=== PATIENT | female | born 1990 | race Caucasian/White ===

== ENCOUNTER 2021-05-12 16:04 | Outpatient (CLI) | payer BC ==
[2021-05-13 01:42] LABS: SARS-CoV-2 PCR by NAA Not Detected (NotDetected)
== END 2021-05-12 16:05 | disposition home or self-care (01) ==
LOC: CSHLAB 16:04
PROVIDERS: ATTEND Obstetrics & Gynecology
DX: Z01.812 Encounter for preprocedural laboratory examination (principal); Z20.822 Contact with and (suspected) exposure to COVID-19
CPT/HCPCS: U0003; U0005

== ENCOUNTER 2021-05-16 05:30 | Inpatient (IN) | payer BC ==
[2021-05-16] MEDS ORDERED: HYDROcodone/Acetaminophen 5/325 mg Tablet PO PRN ×4 (05:56→23:05)
[2021-05-16] MEDS ORDERED: Butorphanol Tartrate 1 MG/ML VIAL SLOW IVP PRN (05:56)
[2021-05-16] MEDS ORDERED: Lidocaine 1% (PF) 30 ML VIAL SC PRN (05:56)
[2021-05-16] MEDS ORDERED: Ondansetron PF 4 MG/2 ML Vial IVP PRN ×3 (05:56→23:05)
[2021-05-16] MEDS ORDERED: hydrALAZINE 20 MG/ML VIAL SLOW IVP PRN ×2 (05:56→23:05)
[2021-05-16] MEDS ORDERED: NS w/ Oxytocin 30 units 500 ML IVPB SCH (05:56)
[2021-05-16] MEDS ORDERED: Ibuprofen 800 MG TAB PO PRN (05:56)
[2021-05-16] MEDS ORDERED: NS w/ Oxytocin 30 units 500 ML IV SCH ×3 (05:56→23:05)
[2021-05-16 06:16] VITALS: BMI 37.0
[2021-05-16] MEDS: Lactated Ringer's 1,000 ML IV SCH ×2 (07:06→19:09)
[2021-05-16 07:21] LABS: Syphilis Antibody Nonreactive (Nonreactive); Syphilis Antibody Index 0.09 S/CO (<1.00 Non-Reactive)
[2021-05-16 07:23] LABS: HIV (1/2) Antibody/Antigen Non-Reactive (NonReactive); HIV 1/2 INDEX 0.07 S/CO (<1.00); Hep B Surf Ag Non-Reactive S/CO (NonReactive)
[2021-05-16 07:38] LABS: Hemoglobin 12.4 g/dL (12.0-15.5); Mean Corpuscular HGB CONC 32.2 g/dL (32.0-36.0); Mean Corpuscular Hemoglobin 26.1 pg (27.0-33.0); Mean Corpuscular Volume 81.1 fl (81.6-98.3); Mean Platelet Volume 11.5 fl (7.4-10.4); Platelet Count 181 10x3/uL (150-450); Red Blood Cell (RBC) Count 4.75 10x6/uL (3.90-5.03); White Blood Cell (WBC) Count 7.9 10x3/uL (3.5-10.5)
[2021-05-16 11:39] LABS: HBSAg Index 0.21 S/CO (0-0.99)
[2021-05-16] MEDS ORDERED: Fentanyl 2 mcg/Bup 0.1% Cadd 100 ML ONE (13:30)
[2021-05-16] MEDS ORDERED: Promethazine HCl 25 MG/ML VIAL IM PRN (14:02)
[2021-05-16] MEDS ORDERED: ePHEDrine Sulfate 50 MG/10 ML VIAL SLOW IVP PRN (14:02)
[2021-05-16] MEDS ORDERED: Naloxone HCl 0.4 mg/ml Vial IVP PRN ×2 (14:02)
[2021-05-16] MEDS ORDERED: Hydrocerin (Eucerin) Cream 120 gm Jar TOP PRN (14:02)
[2021-05-16] MEDS ORDERED: Acetaminophen 325 MG TAB PO PRN (14:02)
[2021-05-16] MEDS ORDERED: Lactated Ringer's 500 ML IV PRN (14:02)
[2021-05-16] MEDS ORDERED: diphenhydrAMINE 50 MG/ML VIAL IVP PRN (14:02)
[2021-05-16] MEDS ORDERED: Communication Order-Pharmacy FS SCH (14:15)
[2021-05-16] MEDS ORDERED: Fentanyl 2 mcg/Bupivacaine 0.1% Cassette 100 ML EPIDURAL SCH (14:15)
[2021-05-16] MEDS ORDERED: Boostrix 0.5 ML (Tdap) VIAL IM ONE (23:05)
[2021-05-16] MEDS ORDERED: diphenhydrAMINE 25 MG CAP PO PRN (23:05)
[2021-05-16] MEDS ORDERED: Benzocaine-Menthol 82.5 ML CAN TOP PRN (23:05)
[2021-05-16] MEDS ORDERED: Bisacodyl 10 MG SUPP PR PRN (23:05)
[2021-05-16] MEDS ORDERED: Lanolin Ointment 7 GM TUBE TOP PRN (23:05)
[2021-05-16] MEDS ORDERED: Milk Of Magnesia 30 ML UDCUP PO PRN (23:05)
[2021-05-16] MEDS ORDERED: Preparation H Ointment 28 GM TUBE PR PRN (23:05)
[2021-05-17] MEDS: Docusate Calcium (SURFAK) 240 MG CAP PO SCH ×3 (01:08→21:39)
[2021-05-17] MEDS: Ibuprofen 800 MG TAB PO SCH ×4 (01:08→21:39)
[2021-05-17] MEDS: Lactated Ringer's 1,000 ML IV SCH (02:44)
[2021-05-17] MEDS: Ferrous Sulfate 325 MG TAB PO SCH ×2 (07:48→18:29)
[2021-05-17] MEDS ORDERED: Prenatal Vitamin 1 TAB PO SCH (09:00)
[2021-05-18 00:29] VITALS: BP 145/73; TEMP 98.9
== END 2021-05-17 22:30 | disposition home or self-care (01) | DRG 807 ==
LOC: CSHLD 05:52 → CSHPP 23:02
PROVIDERS: ADMIT Obstetrics & Gynecology; ATTEND Obstetrics & Gynecology
PROC: 10E0XZZ Delivery of Products of Conception, External Approach (ICD-10-PCS; principal; 2021-05-16)
PROC: 10907ZC Drainage of Amniotic Fluid, Therapeutic from Products of Conception, Via Natural or Artificial Opening (ICD-10-PCS; 2021-05-16)
PROC: 10H07YZ Insertion of Other Device into Products of Conception, Via Natural or Artificial Opening (ICD-10-PCS; 2021-05-16)
PROC: 3E0234Z Introduction of Serum, Toxoid and Vaccine into Muscle, Percutaneous Approach (ICD-10-PCS; 2021-05-17)
DX: O69.81X0 Labor and delivery complicated by cord around neck, without compression, not applicable or unspecified (principal); Z37.0 Single live birth; Z3A.39 39 weeks gestation of pregnancy; O26.893 Other specified pregnancy related conditions, third trimester; Z20.822 Contact with and (suspected) exposure to COVID-19; Z67.41 Type O blood, Rh negative
CPT/HCPCS: 36415; 85027; 85461; 86780; 86850; 86870; 86900; 86901; 87340; 87389; 90384; 96372; J2405; J2590; J7120

== ENCOUNTER 2021-06-01 23:06 | Inpatient (IN) | payer BC ==
[2021-06-01] MEDS ORDERED: Ondansetron PF 4 MG/2 ML Vial ONE (23:34)
[2021-06-01] MEDS ORDERED: Ketorolac Tromethamine 30 MG/ML VIAL ONE (23:34)
[2021-06-01 23:57] LABS: #Eosinphils 0.1 10x3/uL (0.0-0.5); #Monocytes 0.6 10x3/uL (0.0-1.1); #Neutrophils 12.7 10x3/uL (1.5-8.4); %Basophils 0.1 % (0.0-2.0); %Eosinophils 0.8 % (0.0-6.0); %Lymphocytes 7.2 % (18.0-47.0); %Monocytes 3.8 % (0.0-10.0); %Neutrophils 87.8 % (40.0-75.0); Mean Corpuscular HGB CONC 31.9 g/dL (32.0-36.0); Mean Corpuscular Hemoglobin 26.5 pg (27.0-33.0); Mean Corpuscular Volume 82.9 fl (81.6-98.3); Mean Platelet Volume 10.2 fl (7.4-10.4); Platelet Count 258 10x3/uL (150-450); Red Blood Cell (RBC) Count 6.04 10x6/uL (3.90-5.03); White Blood Cell (WBC) Count 14.4 10x3/uL (3.5-10.5)
[2021-06-02 00:12] LABS: ALT (SGPT) 359 U/L (8-55); AST (SGOT) 428 U/L (5-34); Albumin 4.3 g/dL (3.5-5.0); Alkaline Phosphatase 233 U/L (40-110); Anion Gap 16 mmol/L (10-20); BUN (Urea Nitrogen) 11 mg/dL (7.0-18.7); Bilirubin, Total 4.4 mg/dL (0.2-1.2); Calc. Creatinine Clearance 0 mL/min (70-130); Calcium 9.4 mg/dL (7.8-10.44); Carbon Dioxide 21 mmol/L (22-29); Chloride 107 mmol/L (98-107); Glucose 137 mg/dL (70-105); Potassium 3.8 mmol/L (3.5-5.1); Protein, Total 8.3 g/dL (6.0-8.3); Sodium 140 mmol/L (136-145)
[2021-06-02 00:54] LABS: Lipase Greater than 16000 U/L (8-78)
[2021-06-02] MEDS ORDERED: Aztreonam 1 GM in Sodium Chloride 0.9% 100 ML IVPB SCH (01:00)
[2021-06-02 01:35] LABS: SARS-CoV-2 NAA Rapid Test Not Detected (NotDetected)
[2021-06-02] MEDS ORDERED: Morphine 4 MG/ML VIAL ONE ×3 (02:56→10:27)
[2021-06-02 07:41] LABS: #Monocytes 0.4 10x3/uL (0.0-1.1); #Neutrophils 5.9 10x3/uL (1.5-8.4); %Basophils 0.1 % (0.0-2.0); %Eosinophils 0.3 % (0.0-6.0); %Lymphocytes 18.5 % (18.0-47.0); %Monocytes 4.7 % (0.0-10.0); Hemoglobin 14.1 g/dL (12.0-15.5); Mean Corpuscular HGB CONC 31.1 g/dL (32.0-36.0); Mean Corpuscular Hemoglobin 26.7 pg (27.0-33.0); Mean Corpuscular Volume 85.8 fl (81.6-98.3); Mean Platelet Volume 10.4 fl (7.4-10.4); Platelet Count 229 10x3/uL (150-450); RBC Distribution Width 21.7 % (11.5-14.5); Red Blood Cell (RBC) Count 5.29 10x6/uL (3.90-5.03); White Blood Cell (WBC) Count 7.8 10x3/uL (3.5-10.5)
[2021-06-02 07:57] LABS: ALT (SGPT) 273 U/L (8-55); AST (SGOT) 241 U/L (5-34); Albumin 3.6 g/dL (3.5-5.0); Alkaline Phosphatase 198 U/L (40-110); Anion Gap 13 mmol/L (10-20); BUN (Urea Nitrogen) 11 mg/dL (7.0-18.7); Bilirubin, Total 1.2 mg/dL (0.2-1.2); Calc. Creatinine Clearance 0 mL/min (70-130); Calcium 8.2 mg/dL (7.8-10.44); Carbon Dioxide 20 mmol/L (22-29); Chloride 113 mmol/L (98-107); Globulin 3.2 g/dL (2.4-3.5); Glucose 97 mg/dL (70-105); Protein, Total 6.8 g/dL (6.0-8.3); Sodium 142 mmol/L (136-145)
[2021-06-02 08:20] LABS: Lipase 4055 U/L (8-78)
[2021-06-02] MEDS ORDERED: Dextrose 5% in Water 1,000 ML IV PRN (08:32)
[2021-06-02] MEDS ORDERED: Ondansetron PF 4 MG/2 ML Vial IVP PRN (08:32)
[2021-06-02] MEDS ORDERED: Promethazine HCl 25 MG/ML VIAL IM PRN (08:32)
[2021-06-02] MEDS ORDERED: hydrALAZINE 20 MG/ML VIAL SLOW IVP PRN (08:32)
[2021-06-02] MEDS ORDERED: Dextrose 50% Abboject 50 ML SYRINGE SLOW IVP PRN (08:32)
[2021-06-02] MEDS ORDERED: Calcium Carbonate 500 MG ChewTAB PO PRN (08:32)
[2021-06-02] MEDS ORDERED: Mag-Al 1200 mg/1200 mg/30 ML UDCUP PO PRN (08:32)
[2021-06-02] MEDS ORDERED: Famotidine 20 MG TAB PO SCH (09:00)
[2021-06-02] MEDS ORDERED: Morphine 4 MG/ML VIAL SLOW IVP PRN (10:09)
[2021-06-02] MEDS ORDERED: Famotidine/PF 20 mg/2ml Vial ONE ×2 (10:15→14:14)
[2021-06-02] MEDS: Morphine 4 MG/ML VIAL SLOW IVP PRN (10:26)
[2021-06-02] MEDS: Famotidine/PF 20 mg/2ml Vial SLOW IVP SCH ×2 (10:27→20:33)
[2021-06-02] MEDS: Lactated Ringer's 1,000 ML IV SCH ×3 (10:27→20:33)
[2021-06-02] MEDS ORDERED: Ondansetron PF 4 MG/2 ML Vial ONE ×2 (11:42→13:37)
[2021-06-02] MEDS ORDERED: HYDROmorphone 0.5 MG/0.5 ML SYRINGE ONE (13:33)
[2021-06-02] MEDS ORDERED: Dexamethasone 20 MG/5 ML VIAL ONE (13:37)
[2021-06-02] MEDS ORDERED: Lidocaine 1% PF 5 ML VIAL ONE (13:37)
[2021-06-02] MEDS ORDERED: PROPOFOL 40 ML ONE (13:37)
[2021-06-02] MEDS ORDERED: Fentanyl 100 MCG/2 ML VIAL ONE ×2 (13:37→15:48)
[2021-06-02] MEDS ORDERED: Rocuronium Bromide 10 MG/ML (10ML VIAL) ONE (13:37)
[2021-06-02] MEDS ORDERED: Succinylcholine 200 MG/10 ml SYRINGE FS ONE (14:12)
[2021-06-02] MEDS ORDERED: Midazolam HCl 2 mg/2 ml Vial ONE (14:13)
[2021-06-02] MEDS ORDERED: Scopolamine 1.5 mg/72 hour Patch ONE (14:14)
[2021-06-02] MEDS ORDERED: Iopamidol 30 ML ONE (14:53)
[2021-06-02] MEDS ORDERED: Glycopyrrolate 0.2 MG/ML 5 ML SYRINGE ONE (14:53)
[2021-06-02] MEDS ORDERED: Ketorolac Tromethamine 30 MG/ML VIAL ONE ×2 (14:53→14:56)
[2021-06-02 16:41] VITALS: BMI 34.0
[2021-06-03] MEDS: Morphine 4 MG/ML VIAL SLOW IVP PRN (05:11)
[2021-06-03] MEDS: Lactated Ringer's 1,000 ML IV SCH ×2 (05:13→12:46)
[2021-06-03] MEDS ORDERED: Indomethacin 50 MG SUPP PR SCH (08:45)
[2021-06-03] MEDS ORDERED: Iopamidol 15 ML ONE (08:48)
[2021-06-03] MEDS ORDERED: Fentanyl 100 MCG/2 ML VIAL ONE ×2 (09:16→09:19)
[2021-06-03] MEDS ORDERED: PROPOFOL 20 ML ONE (09:19)
[2021-06-03] MEDS ORDERED: Rocuronium Bromide 10 MG/ML (10ML VIAL) ONE (09:20)
[2021-06-03] MEDS ORDERED: Lidocaine 4% PF 5 ML AMP ONE (09:20)
[2021-06-03] MEDS: Famotidine/PF 20 mg/2ml Vial SLOW IVP SCH ×2 (09:25→21:13)
[2021-06-03] MEDS ORDERED: Ondansetron PF 4 MG/2 ML Vial ONE ×2 (09:51→11:03)
[2021-06-03] MEDS ORDERED: Dexamethasone 4 mg/ml Vial ONE (09:51)
[2021-06-03] MEDS ORDERED: Glycopyrrolate 0.2 MG/ML 5 ML SYRINGE ONE (09:54)
[2021-06-03] MEDS ORDERED: HYDROcodone/Acetaminophen 5/325 mg Tablet PO PRN (13:32)
[2021-06-03] MEDS ORDERED: Acetaminophen 325 MG TAB PO PRN (13:34)
[2021-06-03] MEDS: HYDROcodone/Acetaminophen 5/325 mg Tablet PO PRN (17:09)
[2021-06-04 06:04] LABS: ALT (SGPT) 210 U/L (8-55); AST (SGOT) 92 U/L (5-34); Albumin 3.1 g/dL (3.5-5.0); Alkaline Phosphatase 251 U/L (40-110); Bilirubin, Direct 0.3 mg/dL (0.1-0.3); Bilirubin, Total 0.6 mg/dL (0.2-1.2); Protein, Total 5.9 g/dL (6.0-8.3)
[2021-06-04] MEDS: HYDROcodone/Acetaminophen 5/325 mg Tablet PO PRN (07:06)
[2021-06-04] MEDS: Famotidine/PF 20 mg/2ml Vial SLOW IVP SCH (07:07)
[2021-06-04 11:12] VITALS: BP 125/74; TEMP 98.6
== END 2021-06-04 12:15 | disposition home or self-care (01) | DRG 769 ==
LOC: CSHERS 23:06 → UNDOADMIN 23:07 → CSHERHOLD 23:07 → CSHTELE 06-02 13:27 → CSHERHOLD 06-02 13:27
PROVIDERS: ADMIT Surgery; ATTEND Surgery
PROC: 0FT44ZZ Resection of Gallbladder, Percutaneous Endoscopic Approach (ICD-10-PCS; principal; 2021-06-02)
PROC: BF13YZZ Fluoroscopy of Gallbladder and Bile Ducts using Other Contrast (ICD-10-PCS; 2021-06-02)
PROC: 0FC98ZZ Extirpation of Matter from Common Bile Duct, Via Natural or Artificial Opening Endoscopic (ICD-10-PCS; 2021-06-03)
DX: O99.63 Diseases of the digestive system complicating the puerperium (principal); K85.10 Biliary acute pancreatitis without necrosis or infection; K80.50 Calculus of bile duct without cholangitis or cholecystitis without obstruction; O99.285 Endocrine, nutritional and metabolic diseases complicating the puerperium; E03.9 Hypothyroidism, unspecified; Z20.822 Contact with and (suspected) exposure to COVID-19; Z90.49 Acquired absence of other specified parts of digestive tract; Z88.0 Allergy status to penicillin; Z79.890 Hormone replacement therapy; Z79.899 Other long term (current) drug therapy
CPT/HCPCS: 36415; 47532; 76705; 80053; 80076; 83690; 85025; 94760; 96365; 96375; 96376; J0744; J1100; J1170; J1610; J1885; J2250; J2270; J2405; J2704; J3010; J3490; J7120; Q9967; S0028; U0002

== ENCOUNTER 2025-03-26 15:31 | Outpatient (CLI) | payer BC | END 2025-03-26 15:32 | disposition home or self-care (01) | LOC: CSHRAD 15:31 | PROVIDERS: ATTEND Student in an Organized Health Care Education/Training Program | DX: M54.50 Low back pain, unspecified (principal); M41.85 Other forms of scoliosis, thoracolumbar region | CPT/HCPCS: 72100 ==